=== PATIENT | female | born 1945 | race Caucasian/White ===

== ENCOUNTER → 2016-11-29 | Outpatient (CLI) | payer MEDICARE, BC ==
[~2016-11-29] MED LIST: ALLEGRA60 MG PO; CELEXA 20MG20 MG/TAB PO; COMBIVENT INH14.7 GM IH; HCTZ; HCTZ12.5TAB PO; LORTAB 5/500 501 TAB PO; NAPROXEN EC500 MG PO; ORPHENADRINE C100 MG PO; PEPCID 20MG TAB20 MG PO; PEPCID20 MG PO; PERCOCET 325 MG1 TA2 PO; PHENTERMINE15 MG; PHENTERMINE15 MG PO; PREMARIN0.625 MG PO; PRINIVIL10 MG PO; TARKA; VERELAN240 MG PO; WATER PILL; XANAX0.5 MG PO; ZITHROMAX 250M250 MG PO; ZITHROMAX Z PA250 MG PO; ZOFRAN 4MG T4 MG/TAB PO
== END ==
LOC: MC.RAD 07:59
DX: Z12.31 Encounter for screening mammogram for malignant neoplasm of breast (principal)

== ENCOUNTER → 2017-10-07 | Outpatient (REF) | LOC: ZLAB.WCH 15:58 | DX: Z01.89 Encounter for other specified special examinations (principal) ==

== ENCOUNTER → 2017-12-07 | Outpatient (CLI) | payer MEDICARE, BC | LOC: MC.RAD 13:20 | DX: Z12.31 Encounter for screening mammogram for malignant neoplasm of breast (principal) ==

== ENCOUNTER → 2018-12-12 | Outpatient (CLI) | payer MEDICARE, BC | LOC: MC.RAD 08:00 | DX: Z12.31 Encounter for screening mammogram for malignant neoplasm of breast (principal) ==

== ENCOUNTER → 2019-12-14 | Outpatient (CLI) | payer MEDICARE, BC | LOC: MC.RAD 09:22 | DX: Z12.31 Encounter for screening mammogram for malignant neoplasm of breast (principal) ==